=== PATIENT | male | born 1995 | race Caucasian/White ===

== ENCOUNTER 2016-09-08 19:48 | Emergency (ER) | payer OTHER ==
--- NOTE | ~2016-09-08 | CR63 ---
[facility] RADIOLOGY TEXT RESULTS PATIENT: MARCELA LYN LOCATION: SED : [birth year] UNIT #: [id number] AGE: [address]: MARINA JJ SEX: M ORDER DR: [id number] [address] [address] [id number] E MR#: [id number] Acc #: [id number] NAME: MARCELA LYN. : 1995 SEX: M STUDY DATE/TIME: 09/08/2016 21:58 UNIT: SED ROOM: STUDY DESCRIPTION: CR Chest 2 View Attending Physician: Marina Jj Aprn Ordering Physician: Marina Jj Aprn Primary Care Physician: Ariela Loo M.D. MEDICAL IMAGING REPORT This report is preliminary unless electronic signature is present. EXAM PA and lateral chest INDICATIONS Chest pain since this morning, left rib pain and pain with deep respiration. DATE: 09/08 COMPARISON: 12/05/2014. FINDINGS PA and lateral examination of the chest upright shows a good expansion of the parenchyma with a normal distribution of the pulmonary vascularity. There is no indication of congestion, effusion, infiltrate, tumor, or nodular density. The pleural reflections and diaphragmatic contours are normal. The cardiac silhouette and mediastinal anatomy is within normal limits. IMPRESSION Normal chest. Dictated by... Osmel Herrera M.D. THIS IS AN ELECTRONICALLY VERIFIED REPORT Osmel Herrera M.D. at 09/09/2016 1:37 PM MICHAEL/annamaria TD: 09/09/2016 12:12 JOB #: [id number] [facility] RADIOLOGY TEXT RESULTS PATIENT: MARCELA LYN LOCATION: SED : [birth year] UNIT #: [id number] AGE: [address]: MARINA JJ SEX: M ORDER DR: MEDICAL IMAGING REPORT Page 1 of 1
[~2016-09-08 19:48] MED LIST: ATARAX PO; BENZONATATE PO; BUSPAR PO; BUSPIRONE HCL10 MG PO; DOXYCYCLINE HY100 M1 PO; IBUPROFEN PO; LORTAB 7.5-5001 TAB PO; MOTRIN PO; NEXIUM PO; NO MEDICATIONS; OMEPRAZOLE20 M2 PO; PEPCID PO; PHENERGAN/CODEIN5 ML PO; PRILOSEC20 MG PO; PROVENTIL17 GM INH; RANITIDINE HCL150 M1 PO; SERTRALINE HCL50 MG PO; VOLTAREN75 MG PO
== END 2016-09-08 23:07 | disposition home or self-care (01) ==
LOC: SED 19:48
DX: M94.0 Chondrocostal junction syndrome [Tietze] (principal); F17.210 Nicotine dependence, cigarettes, uncomplicated
CPT/HCPCS: 71020; 99283